=== PATIENT | male | born 1950 | race Caucasian/White ===

== ENCOUNTER 2019-03-18 23:18 | Inpatient (IN) | payer MEDICARE, OTHER ==
[2019-03-18] MEDS ORDERED: HYDROmorphone 1 MG/ML 1 ML SYRINGE IVP STA (23:39)
[2019-03-18] MEDS ORDERED: ONDANSETRON 4 MG/2 ML VIAL IVP STA (23:39)
[2019-03-18] MEDS ORDERED: ACETAMINOPHEN TAB 500 MG TAB PO STA (23:43)
[2019-03-18] MEDS ORDERED: DIAZEPAM 5 MG/ML 2 ML INJ IVP STA (23:44)
[2019-03-19] MEDS ORDERED: HYDROmorphone 0.5 MG/0.5 ML SYRINGE IVP STA (00:11)
[2019-03-19 00:15] LABS: Basophils # (A) 0.1 k/uL (0-0.2); Basophils % (A) 0 %; Eosinophils # (A) 0.2 k/uL (0-0.7); Eosinophils % (A) 1 %; HCT 52.1 % (39.0-53.0); HGB 17.1 gm/dL (13.0-17.5); Lymphocytes # (A) 3.1 k/uL (1.0-4.8); Lymphocytes % (A) 14 %; MCH 29.8 pg (25.0-35.0); MCHC 32.7 g/dL (31.0-37.0); MCV 90.9 fL (80.0-100.0); Monocytes # (A) 1.3 k/uL (0-1.0); Monocytes % (A) 6 %; Neutrophils # (A) 17.5 k/uL (1.3-7.7); Neutrophils % (A) 78 %; Platelet Count 168 k/uL (150-450); RBC 5.73 m/uL (4.30-5.90); RDW 14.1 % (11.5-15.5); WBC 22.4 k/uL (3.8-10.6)
[2019-03-19 00:17] LABS: ALT 27 U/L (21-72); AST 34 U/L (17-59); African American GFR (CKD) >90 (>60 ml/min/1.73 sqM); Alkaline Phosphatase 53 U/L (38-126); Anion Gap 12 mmol/L; Blood Urea Nitrogen 23 mg/dL (9-20); Calcium 9.6 mg/dL (8.4-10.2); Carbon Dioxide 20 mmol/L (22-30); Chloride 106 mmol/L (98-107); Glucose 150 mg/dL (74-99); Potassium 4.4 mmol/L (3.5-5.1); Sodium 138 mmol/L (137-145); Total Bilirubin 0.7 mg/dL (0.2-1.3); Total Protein 6.9 g/dL (6.3-8.2)
[2019-03-19] MEDS: SODIUM CHLORIDE 0.9% 500 ML 500 ML IV SCH ×2 (00:18→03:00)
[2019-03-19 00:23] LABS: INR 0.9 (<1.2); Partial Thromboplastin Time 22.3 sec (22.0-30.0); Prothrombin Time 10.2 sec (9.0-12.0)
[2019-03-19 00:33] LABS: Appearance,Urine Clear (Clear); Bilirubin,Urine Negative (Negative); Blood,Urine Negative (Negative); Color,Urine Yellow; Glucose,Urine (UA) Negative (Negative); Ketones,Urine Negative (Negative); Leukocyte Esterase,Urine Large (Negative); Mucus,Urine Rare /hpf; Nitrite,Urine Negative (Negative); Protein,Urine Negative (Negative); RBC,Urine 1 /hpf (0-5); Specific Gravity,Urine 1.019 (1.001-1.035); Urobilinogen,Urine <2.0 mg/dL (<2.0); WBC,Urine 10 /hpf (0-5)
--- NOTE | 2019-03-19 01:06 | CT ---
EXAM: CT Abdomen and Pelvis With Intravenous Contrast CLINICAL HISTORY: ITS.REASON CT Reason: Severe low back pain; Fever; Syncope TECHNIQUE: Axial computed tomography images of the abdomen and pelvis with intravenous contrast. DLP is 3313.6 mGy-cm. This CT exam was performed using one or more of the following dose reduction techniques: automated exposure control, adjustment of the mA and/or kV according to patient size, and/or use of iterative reconstruction technique. Coronal and sagittal reconstructions are performed COMPARISON: No relevant prior studies available. FINDINGS: Lung bases: Unremarkable. No mass. No consolidation. ABDOMEN: Liver: Mildly enlarged fatty liver. Gallbladder and bile ducts: Unremarkable. No calcified stones. No ductal dilation. Pancreas: Unremarkable. No mass. No ductal dilation. Spleen: 16 cm splenomegaly. Adrenals: Unremarkable. No mass. Kidneys and ureters: Small bilateral renal cysts. No hydronephrosis. Stomach and bowel: Mild colonic diverticulosis. No obstruction. No mucosal thickening. PELVIS: Appendix: Normal appendix. Bladder: Unremarkable. No mass. Hand Reproductive: Large coarse central calcifications of the prostate gland. ABDOMEN and PELVIS: Intraperitoneal space: Unremarkable. No free air. No significant fluid collection. Bones/joints: No acute fracture. No dislocation. Soft tissues: Suspect left gynecomastia. Vasculature: Moderate amount of atherosclerotic calcifications. No abdominal aortic aneurysm. Lymph nodes: Unremarkable. No enlarged lymph nodes. IMPRESSION: No acute findings.
--- NOTE | 2019-03-19 02:11 | XR ---
EXAM: XR Chest, 2 Views CLINICAL HISTORY: ITS.REASON XR Reason: Pain TECHNIQUE: Frontal and lateral views of the chest. COMPARISON: No relevant prior studies available. FINDINGS: Lungs: Unremarkable. No consolidation. Pleural space: Unremarkable. No pneumothorax. Heart: Unremarkable. No cardiomegaly. Mediastinum: Unremarkable. Bones/joints: Unremarkable. IMPRESSION: No acute findings
[2019-03-19] MEDS ORDERED: LEVOFLOXACIN 750MG-D5W PMX 750 MG in DEXTROSE/WATER 1 150ML.BAG IVPB STA (02:40)
[2019-03-19] MEDS ORDERED: VANCOMYCIN IV PER PHARMACY 1 EACH MISC MISCELLANE PRN (02:40)
[2019-03-19] MEDS ORDERED: NALOXONE 0.4 MG/ML 1 ML VIAL IV PRN (02:41)
[2019-03-19] MEDS ORDERED: HYDROmorphone 1 MG/ML 1 ML SYRINGE IVP PRN (02:41)
[2019-03-19] MEDS ORDERED: VANCOMYCIN 1,750 MG in SODIUM CHLORIDE 0.9% 500 ML 500 ML IVPB STA (02:44)
--- NOTE | 2019-03-19 02:44 | ED ---
General Adult HPI - General Source: patient Mode of arrival: wheelchair Limitations: no limitations <Shelly Zavala - Last Filed: 03/19/19 03:02> <Gerson Montilla - Last Filed: 03/23/19 04:13> - General Chief complaint: Back Pain/Injury Stated complaint: Lower Back Pain Time Seen by Provider: 03/18/19 23:33 - History of Present Illness Initial comments: 68-year-old male patient presents to the emergency department today for evaluation of severe low back pain. Family member state that pain started suddenly a couple of hours ago after patient had an episode of shaking chills. Family members state the patient has passed out multiple times from the pain. Patient denies any known injury to the back. Denies any history of back pain. Patient reports the pain is to the mid low back and is stabbing in nature. Denies any radiation of the pain down his legs. Denies a loss of bowel or bladder control. Denies any saddle anesthesia. Patient is in quite a bit of distress upon arrival. Patient denies any chest pain or shortness of breath. Denies any abdominal pain, constipation, or diarrhea. Patient states he is nauseated from the pain but denies any vomiting. Denies any recent travel or sick contacts. Denies any history of IV drug use. Denies any known history of aortic aneurysm. Patient is a former smoker. Admits to smoking marijuana. Denies any alcohol use. Patient denies any recent rash, numbness, tingling, dizziness, weakness, hematuria, dysuria, urinary urgency, urinary frequency, headache, visual changes, or any other complaints. (Shelly Zavala) - Related Data Allergies Allergy/AdvReac Type Severity Reaction Status Date / Time No Known Allergies Allergy Verified 03/19/19 07:37 Review of Systems ROS Other: All systems not noted in ROS Statement are negative. <Shelly Zavala - Last Filed: 03/19/19 03:02> ROS Other: All systems not noted in ROS Statement are negative. <Gerson Montilla - Last Filed: 03/23/19 04:13> ROS Statement: Those systems with pertinent positive or pertinent negative responses have been documented in the HPI. Past Medical History Past Medical History: No Reported History History of Any Multi-Drug Resistant Organisms: None Reported Past Surgical History: Cholecystectomy, Orthopedic Surgery Additional Past Surgical History / Comment(s): knee Past Psychological History: No Psychological Hx Reported Smoking Status: Former smoker Past Alcohol Use History: None Reported Past Drug Use History: Marijuana <Shelly Zavala - Last Filed: 03/19/19 03:02> General Exam Limitations: no limitations General appearance: alert, in distress (Related to pain), other (This is a well- developed, well-nourished adult male patient in acute distress related to pain. Patient is quite uncomfortable during exam, unable to sit upright. Appears to be having spasm-type pain. Has exhibited 2-3 episodes of syncope during the exam. Vital signs upon presentation are temperature 98.4F, pulse 112, respirations 26, blood pressure 154/73, pulse ox 99% on room air.) Eye exam: Present: normal appearance, PERRL, EOMI. Absent: scleral icterus, conjunctival injection, periorbital swelling ENT exam: Present: normal exam, normal oropharynx, mucous membranes moist Respiratory exam: Present: normal lung sounds bilaterally. Absent: respiratory distress, wheezes, rales, rhonchi, stridor Cardiovascular Exam: Present: normal rhythm, tachycardia, normal heart sounds. Absent: systolic murmur, diastolic murmur, rubs, gallop, clicks GI/Abdominal exam: Present: soft, normal bowel sounds. Absent: distended, tenderness, guarding, rebound, rigid Back exam: Present: normal inspection. Absent: vertebral tenderness Neurological exam: Present: alert, oriented X3, CN II-XII intact Psychiatric exam: Present: normal affect, normal mood Skin exam: Present: warm, dry, intact, normal color. Absent: rash <Shelly Zavala M - Last Filed: 03/19/19 03:02> Course Vital Signs 03/18/19 03/19/19 03/19/19 23:22 00:20 00:25 Temperature 98.4 F 101 F H Pulse Rate 112 H 111 H Pulse Rate [ 115 H Can Washer ] Respiratory 26 H 17 Rate Blood Pressure 154/73 122/69 Blood Pressure [Right Arm] O2 Sat by Pulse 99 95 Oximetry 03/19/19 03/19/19 03/19/19 03:00 03:36 04:00 Temperature 98.7 F 98.7 F Pulse Rate 89 78 Pulse Rate [ 80 Can Washer ] Respiratory 18 18 14 Rate Blood Pressure 106/60 110/47 Blood Pressure 109/65 [Right Arm] O2 Sat by Pulse 95 96 Oximetry EKG Findings - EKG Comments: EKG Findings:: EKG obtained at 001 shows sinus tachycardia with a ventricular rate of 106, [place] interval 162, QRS duration 76, QT to 92, QTc 387. No evidence of ST elevation or depression. <Shelly Zavala - Last Filed: 03/19/19 03:02> Medical Decision Making - Lab Data Result diagrams: 03/18/19 23:41 03/18/19 23:41 - Radiology Data Radiology results: report reviewed, image reviewed <Shelly Zavala - Last Filed: 03/19/19 03:02> - Lab Data Result diagrams: 03/20/19 04:31 03/20/19 04:31 <Gerson Montilla - Last Filed: 03/23/19 04:13> - Medical Decision Making 68 year-old male patient presented to the emergency department today for evalu ation of severe low back pain after an episode of shaking chills. Physical examination was relatively unremarkable. Abdomen soft and nontender. No spinal tenderness. Patient was found to be febrile upon arrival with a temperature 101.0F. Labs reviewed and did reveal white blood cell count at 22.4, lactic acid 3.0. Urinalysis shows large leukocyte esterase with 10 white blood cells. No bacteria. CT abdomen and pelvis was obtained with contrast, no acute abnormalities were identified. Chest x-ray was obtained and showed no acute abnormalities. Origin of patient's fever and infection is not clear at this time however we'll start broad-spectrum antibiotics. He'll be admitted to the [facility] for further evaluation and infectious disease consult. Did discuss findings and results with the patient's family, they are agreeable to this plan. (Shelly Zavala) I saw this patient in conjunction with the physician assistant manager quality management. I performed independent history and physical exam. Agree with case management. (Gerson Montilla) - Lab Data Lab Results 03/18/19 03/18/19 03/18/19 Range/Units 23:41 23:41 23:41 WBC 22.4 H (3.8-10.6) k/uL RBC 5.73 (4.30-5.90) m/uL Hgb 17.1 (13.0-17.5) gm/dL Hct 52.1 (39.0-53.0) % MCV 90.9 (80.0-100.0) fL MCH 29.8 (25.0-35.0) pg MCHC 32.7 (31.0-37.0) g/dL RDW 14.1 (11.5-15.5) % Plt Count 168 (150-450) k/uL Neutrophils % 78 % Lymphocytes % 14 % Monocytes % 6 % Eosinophils % 1 % Basophils % 0 % Neutrophils # 17.5 H (1.3-7.7) k/uL Lymphocytes # 3.1 (1.0-4.8) k/uL Monocytes # 1.3 H (0-1.0) k/uL Eosinophils # 0.2 (0-0.7) k/uL Basophils # 0.1 (0-0.2) k/uL Manual Slide Review Performed PT (9.0-12.0) sec INR (<1.2) APTT (22.0-30.0) sec Sodium 138 (137-145) mmol/L Potassium 4.4 (3.5-5.1) mmol/L Chloride 106 (98-107) mmol/L Carbon Dioxide 20 L (22-30) mmol/L Anion Gap 12 mmol/L BUN 23 H (9-20) mg/dL Creatinine 0.75 (0.66-1.25) mg/dL Est GFR (CKD-EPI)AfAm >90 (>60 ml/min/1.73 sqM) Est GFR (CKD-EPI)NonAf >90 (>60 ml/min/1.73 sqM) Glucose 150 H (74-99) mg/dL Lactic Ac Sepsis Rflx Plasma Lactic Acid Chris 3.0 H* (0.7-2.0) mmol/L Calcium 9.6 (8.4-10.2) mg/dL Total Bilirubin 0.7 (0.2-1.3) mg/dL AST 34 (17-59) U/L ALT 27 (21-72) U/L Alkaline Phosphatase 53 (38-126) U/L Troponin I (0.000-0.034) ng/mL Total Protein 6.9 (6.3-8.2) g/dL Albumin 4.0 (3.5-5.0) g/dL Urine Color Urine Appearance (Clear) Urine pH (5.0-8.0) Ur Specific [place] (1.001-1.035) Urine Protein (Negative) Urine Glucose (UA) (Negative) Urine Ketones (Negative) Urine Blood (Negative) Urine Nitrite (Negative) Urine Bilirubin (Negative) Urine Urobilinogen (<2.0) mg/dL Ur Leukocyte Esterase (Negative) Urine RBC (0-5) /hpf Urine WBC (0-5) /hpf Urine Mucus (None) /hpf Urine Opiates Screen (NotDetected) Ur Oxycodone Screen (NotDetected) Urine Methadone Screen (NotDetected) Ur Propoxyphene Screen (NotDetected) Ur Barbiturates Screen (NotDetected) U Tricyclic Antidepress (NotDetected) Ur Phencyclidine Scrn (NotDetected) Ur Amphetamines Screen (NotDetected) U Methamphetamines Scrn (NotDetected) U Benzodiazepines Scrn (NotDetected) Urine Cocaine Screen (NotDetected) U Marijuana (THC) Screen (NotDetected) 03/18/19 03/18/19 03/19/19 Range/Units 23:41 23:41 00:12 WBC (3.8-10.6) k/uL RBC (4.30-5.90) m/uL Hgb (13.0-17.5) gm/dL Hct (39.0-53.0) % MCV (80.0-100.0) fL MCH (25.0-35.0) pg MCHC (31.0-37.0) g/dL RDW (11.5-15.5) % Plt Count (150-450) k/uL Neutrophils % % Lymphocytes % % Monocytes % % Eosinophils % % Basophils % % Neutrophils # (1.3-7.7) k/uL Lymphocytes # (1.0-4.8) k/uL Monocytes # (0-1.0) k/uL Eosinophils # (0-0.7) k/uL Basophils # (0-0.2) k/uL Manual Slide Review PT 10.2 (9.0-12.0) sec INR 0.9 (<1.2) APTT 22.3 (22.0-30.0) sec Sodium (137-145) mmol/L Potassium (3.5-5.1) mmol/L Chloride (98-107) mmol/L Carbon Dioxide (22-30) mmol/L Anion Gap mmol/L BUN (9-20) mg/dL Creatinine (0.66-1.25) mg/dL Est GFR (CKD-EPI)AfAm (>60 ml/min/1.73 sqM) Est GFR (CKD-EPI)NonAf (>60 ml/min/1.73 sqM) Glucose (74-99) mg/dL Lactic Ac Sepsis Rflx Plasma Lactic Acid Chris (0.7-2.0) mmol/L Calcium (8.4-10.2) mg/dL Total Bilirubin (0.2-1.3) mg/dL AST (17-59) U/L ALT (21-72) U/L Alkaline Phosphatase (38-126) U/L Troponin I <0.012 (0.000-0.034) ng/mL Total Protein (6.3-8.2) g/dL Albumin (3.5-5.0) g/dL Urine Color Yellow Urine Appearance Clear (Clear) Urine pH 5.0 (5.0-8.0) Ur Specific [place] 1.019 (1.001-1.035) Urine Protein Negative (Negative) Urine Glucose (UA) Negative (Negative) Urine Ketones Negative (Negative) Urine Blood Negative (Negative) Urine Nitrite Negative (Negative) Urine Bilirubin Negative (Negative) Urine Urobilinogen <2.0 (<2.0) mg/dL Ur Leukocyte Esterase Large H (Negative) Urine RBC 1 (0-5) /hpf Urine WBC 10 H (0-5) /hpf Urine Mucus Rare H (None) /hpf Urine Opiates Screen (NotDetected) Ur Oxycodone Screen (NotDetected) Urine Methadone Screen (NotDetected) Ur Propoxyphene Screen (NotDetected) Ur Barbiturates Screen (NotDetected) U Tricyclic Antidepress (NotDetected) Ur Phencyclidine Scrn (NotDetected) Ur Amphetamines Screen (NotDetected) U Methamphetamines Scrn (NotDetected) U Benzodiazepines Scrn (NotDetected) Urine Cocaine Screen (NotDetected) U Marijuana (THC) Screen (NotDetected) 03/19/19 03/19/19 Range/Units 00:15 00:41 WBC (3.8-10.6) k/uL RBC (4.30-5.90) m/uL Hgb (13.0-17.5) gm/dL Hct (39.0-53.0) % MCV (80.0-100.0) fL MCH (25.0-35.0) pg MCHC (31.0-37.0) g/dL RDW (11.5-15.5) % Plt Count (150-450) k/uL Neutrophils % % Lymphocytes % % Monocytes % % Eosinophils % % Basophils % % Neutrophils # (1.3-7.7) k/uL Lymphocytes # (1.0-4.8) k/uL Monocytes # (0-1.0) k/uL Eosinophils # (0-0.7) k/uL Basophils # (0-0.2) k/uL Manual Slide Review PT (9.0-12.0) sec INR (<1.2) APTT (22.0-30.0) sec Sodium (137-145) mmol/L Potassium (3.5-5.1) mmol/L Chloride (98-107) mmol/L Carbon Dioxide (22-30) mmol/L Anion Gap mmol/L BUN (9-20) mg/dL Creatinine (0.66-1.25) mg/dL Est GFR (CKD-EPI)AfAm (>60 ml/min/1.73 sqM) Est GFR (CKD-EPI)NonAf (>60 ml/min/1.73 sqM) Glucose (74-99) mg/dL Lactic Ac Sepsis Rflx Y Plasma Lactic Acid Chris (0.7-2.0) mmol/L Calcium (8.4-10.2) mg/dL Total Bilirubin (0.2-1.3) mg/dL AST (17-59) U/L ALT (21-72) U/L Alkaline Phosphatase (38-126) U/L Troponin I (0.000-0.034) ng/mL Total Protein (6.3-8.2) g/dL Albumin (3.5-5.0) g/dL Urine Color Urine Appearance (Clear) Urine pH (5.0-8.0) Ur Specific [place] (1.001-1.035) Urine Protein (Negative) Urine Glucose (UA) (Negative) Urine Ketones (Negative) Urine Blood (Negative) Urine Nitrite (Negative) Urine Bilirubin (Negative) Urine Urobilinogen (<2.0) mg/dL Ur Leukocyte Esterase (Negative) Urine RBC (0-5) /hpf Urine WBC (0-5) /hpf Urine Mucus (None) /hpf Urine Opiates Screen Detected H (NotDetected) Ur Oxycodone Screen Not Detected (NotDetected) Urine Methadone Screen Not Detected (NotDetected) Ur Propoxyphene Screen Not Detected (NotDetected) Ur Barbiturates Screen Not Detected (NotDetected) U Tricyclic Antidepress Not Detected (NotDetected) Ur Phencyclidine Scrn Not Detected (NotDetected) Ur Amphetamines Screen Not Detected (NotDetected) U Methamphetamines Scrn Not Detected (NotDetected) U Benzodiazepines Scrn Detected H (NotDetected) Urine Cocaine Screen Not Detected (NotDetected) U Marijuana (THC) Screen Detected H (NotDetected) - Radiology Data CT abdomen and pelvis with contrast was obtained. Report is reviewed in its entirety. Impression by Dr. Gamino shows no acute findings. Two-view x-ray of the chest is obtained. Report was reviewed in its entirety. Impression by Dr. Gamino shows no acute findings. (Shelly Zavala) Disposition Decision to Admit Reason: Admit from EC Decision Date: 03/19/19 Decision Time: 02:43 <Shelly Zavala - Last Filed: 03/19/19 03:02> <Gerson Montilla - Last Filed: 03/23/19 04:13> Clinical Impression: Fever, Sepsis Disposition: ADMITTED IP TO THIS [facility] Condition: Serious
[2019-03-19 05:33] LABS: Glucose,Whole Blood 181 mg/dL (75-99)
[2019-03-19 06:14] LABS: Basophils # (A) 0.1 k/uL (0-0.2); Basophils % (A) 0 %; Eosinophils # (A) 0.2 k/uL (0-0.7); Eosinophils % (A) 1 %; HCT 44.5 % (39.0-53.0); Lymphocytes # (A) 0.7 k/uL (1.0-4.8); Lymphocytes % (A) 2 %; MCH 31.2 pg (25.0-35.0); MCHC 33.8 g/dL (31.0-37.0); MCV 92.4 fL (80.0-100.0); Mean Platelet Volume 7.3; Monocytes # (A) 1.9 k/uL (0-1.0); Monocytes % (A) 6 %; Neutrophils # (A) 30.2 k/uL (1.3-7.7); Neutrophils % (A) 91 %; Platelet Count 145 k/uL (150-450); RBC 4.82 m/uL (4.30-5.90); RDW 14.1 % (11.5-15.5); WBC 33.3 k/uL (3.8-10.6)
[2019-03-19 06:21] LABS: Albumin 3.1 g/dL (3.5-5.0); Calcium 8.6 mg/dL (8.4-10.2); Potassium 4.4 mmol/L (3.5-5.1); Total Bilirubin 1.1 mg/dL (0.2-1.3); Total Protein 5.6 g/dL (6.3-8.2)
[2019-03-19 06:35] LABS: Glucose,Whole Blood 161 mg/dL (75-99)
[2019-03-19] MEDS: SODIUM CHLORIDE 0.9% 1,000 ML IV SCH ×4 (06:47→08:27)
[2019-03-19 06:48] VITALS: BMI 40.7
[2019-03-19 07:04] LABS: Appearance,Urine Clear (Clear); Bilirubin,Urine Negative (Negative); Blood,Urine Negative (Negative); Color,Urine Yellow; Glucose,Urine (UA) Negative (Negative); Ketones,Urine Negative (Negative); Leukocyte Esterase,Urine Small (Negative); Mucus,Urine Rare /hpf; Nitrite,Urine Negative (Negative); PH, Urine 5.5 (5.0-8.0); Protein,Urine Trace (Negative); RBC,Urine 3 /hpf (0-5); Urobilinogen,Urine <2.0 mg/dL (<2.0)
[2019-03-19 07:29] LABS: Magnesium 1.4 mg/dL (1.6-2.3); Phosphorus 3.7 mg/dL (2.5-4.5)
[2019-03-19 07:29] LABS: Specific Gravity,Urine >1.050 (1.001-1.035)
--- NOTE | 2019-03-19 07:32 | XR ---
EXAMINATION TYPE: XR chest 1V DATE OF EXAM: 03/19/2019 COMPARISON: 03/19/2019 HISTORY: Shortness of breath TECHNIQUE: Single frontal view of the chest is obtained. FINDINGS: Heart size normal. No overt failure or pneumothorax. No pleural effusion. Atherosclerotic change aorta. IMPRESSION: No acute process.
[2019-03-19] MEDS ORDERED: ONDANSETRON 4 MG/2 ML VIAL IVP PRN (08:18)
[2019-03-19] MEDS: PANTOPRAZOLE 40 MG TABLET PO SCH (08:25)
[2019-03-19] MEDS: HEPARIN SODIUM,PORCINE 5,000 UNIT/ML 1 ML VIAL SQ SCH ×3 (08:28→23:23)
--- NOTE | 2019-03-19 09:44 | P.CNPUL ---
History of Present Illness Consult date: 03/19/19 Chief complaint: Reiger's, fever, back pain History of present illness: A 68-year-old male patient who came in to the ED with Brinegar's, sweating and lower back pain. The patient was apparently having shaking chills prior to him coming to the hospital and he was recommended to have a temperature of 101. Prior to this admission, the patient was seen by his primary care physician for a COPD exacerbation. Apparently was having some shortness of breath and cough and he also described pain in his mid chest radiating to his upper back. He was given antibiotics and prednisone burst taper. Antibiotics included Zithromax. He apparently improved without any further workup. He was told that he will need an echocardiogram at a later stage by his primary care physician. During this current admission, the back pain was in the lower back area. A CAT scan of the abdomen and pelvis was done with and chest and did not show any acute abnorm alities. The patient denied having any dysuria freaks urgency. He was quite nauseated. The pain was extensive in the lower back area probably at the level of L3-L4 without any radiation. I was told that he was having episodes of passing out and this was attributed to the severe pain. None of these episodes were noted by the nursing staff. He was given Dilaudid and Valium in the emergency department and it pain completed subsided and he is currently not having any issues with pain. Note that he was admitted to the floor. His white cell count was elevated. He was suspected to be septic. He was given a dose of Levaquin to which she seems to have had a reaction as the patient became quite flushed and restless and dizzy and weak. No rashes were noted. No swelling was noted. No previous history of drug ALLERGY. The patient got moved to the intensive care unit. He was given a total of 2 L of IV fluids. Currently he is feeling better and is free of any pain. No abdominal distention. There is a 2 g drop in hemoglobin. There was a causative 33.3. His lactic acid level is at 2.5. His creatinine is within normal limits. His urinalysis is also within normal limits. He is awake and alert and following commands and answering questions. Reports a remote history of nephrolithiasis. He is a former smoker. He used to also smoke marijuana none for now according to him. No 72 coronary artery disease. No history of falls. No previous back pain. He was having arthritic pain in his knees bilaterally and the patient was taking meloxicam for that. No focal neurological deficit at this point in time. Review of Systems Constitutional: Reports chills, Reports chronic pain, Reports fever, Reports sweats, Reports weakness Eyes: denies as per HPI, denies blurred vision, denies bulging eye, denies decre ased vision, denies diplopia, denies discharge, denies dry eye, denies irritation, denies itching, denies pain, denies photophobia, denies loss of peripheral vision, denies loss of vision, denies tunnel vision/blind spots Ears: deny: decreased hearing Ears, nose, mouth and throat: Reports as per HPI Cardiovascular: Reports as per HPI, Reports chest pain Respiratory: Reports as per HPI, Reports cough, Reports dyspnea, Reports wheezing Gastrointestinal: Reports nausea Genitourinary: Reports kidney stones Musculoskeletal: Reports low back pain Musculoskeletal: absent: ankle pain, ankle stiffness, ankle swelling Integumentary: Reports as per HPI Neurological: Reports as per HPI, Reports syncope, Reports weakness Psychiatric: Reports as per HPI Endocrine: Reports as per HPI, Reports fatigue, Reports flushing Hematologic/Lymphatic: Reports as per HPI Allergic/Immunologic: Reports as per HPI Past Medical History Past Medical History: No Reported History, COPD Additional Past Medical History / Comment(s): COPD, obesity, degenerative arthritis, previous history of kidney stones History of Any Multi-Drug Resistant Organisms: None Reported Past Surgical History: Cholecystectomy, Orthopedic Surgery Additional Past Surgical History / Comment(s): knee Past Anesthesia/Blood Transfusion Reactions: No Reported Reaction Past Psychological History: No Psychological Hx Reported Smoking Status: Former smoker Past Alcohol Use History: None Reported Past Drug Use History: Marijuana - Past Family History Father Family Medical History: Myocardial Infarction ([place]) Additional Family Medical History / Comment(s): father of [place] Medications and Allergies Home Medications Medication Instructions Recorded Confirmed Type Albuterol Inhaler [Ventolin Hfa 2 puff INHALATION RT-Q6H PRN 03/19/19 03/19/19 History Inhaler] Albuterol Nebulized [Ventolin 2.5 mg INHALATION RT-Q6H PRN 03/19/19 03/19/19 History Nebulized] Aspirin EC [Ecotrin Low Dose] 81 mg PO DAILY 03/19/19 03/19/19 History Meloxicam 15 mg PO DAILY 03/19/19 03/19/19 History Allergies Allergy/AdvReac Type Severity Reaction Status Date / Time No Known Allergies Allergy Verified 03/19/19 07:37 Physical Exam Vitals: Vital Signs Temp Pulse Pulse Resp BP BP Pulse Ox 03/19/19 08:30 77 22 108/57 03/19/19 08:00 98.6 F 83 22 110/70 03/19/19 07:30 90 26 H 116/76 03/19/19 07:10 83 14 116/76 03/19/19 07:00 85 19 03/19/19 06:50 76 14 03/19/19 06:40 90 14 03/19/19 06:30 98.7 F 81 17 109/65 98 03/19/19 06:27 80 24 03/19/19 04:00 78 14 110/47 96 03/19/19 03:36 98.7 F 80 18 109/65 03/19/19 03:00 98.7 F 89 18 106/60 95 03/19/19 00:25 101 F H 111 H 17 122/69 95 03/19/19 00:20 115 H 03/18/19 23:22 98.4 F 112 H 26 H 154/73 99 Intake and Output 03/18/19 03/19/19 03/19/19 22:59 06:59 14:59 Other: Weight 108.862 kg The patient appeared well nourished and normally developed. Vital signs as documented. Head exam is unremarkable. No scleral icterus or corneal arcus noted. Neck is without jugular venous distension, thyromegaly, or carotid bruits. Carotid upstrokes are brisk bilaterally. Lungs are diminished bilaterally with few scattered external wheeze.. Cardiac exam reveals the PMI to be normally sized and situated. Rhythm is regular. First and second heart sounds normal. No murmurs, rubs or gallops. Abdominal exam reveals normal bowel sounds, no masses, no organomegaly and no aortic enlargement. Extremities are nonedematous and both femoral and pedal pulses are normal.Examination of the sk in revealed no evidence of significant rashes, suspicious appearing nevi or other concerning lesions. Neurologically the patient is awake and alert and there is no focal neurological deficit. Muscular skeletal exam shows no evidence of any motor weakness in lower extremities. No point tenderness in his lower spine. No area of swelling or erythema or tenderness in the lower spine area. No deformity seen. Results - Laboratory Findings CBC and BMP: 03/19/19 05:59 03/19/19 05:59 PT/INR, D-dimer PT 10.2 sec (9.0-12.0) 03/18/19 23:41 INR 0.9 (<1.2) 03/18/19 23:41 Abnormal lab findings: Abnormal Labs 03/18/19 03/18/19 03/18/19 23:41 23:41 23:41 WBC 22.4 H Plt Count Neutrophils # 17.5 H Lymphocytes # Monocytes # 1.3 H Sodium Carbon Dioxide 20 L BUN 23 H Glucose 150 H POC Glucose (mg/dL) Plasma Lactic Acid Chris 3.0 H* Magnesium Total Protein Albumin Ur Specific [place] [facility] Urine Protein Ur Leukocyte Esterase Urine WBC Urine Mucus 03/19/19 03/19/19 03/19/19 00:12 03:58 05:30 WBC Plt Count Neutrophils # Lymphocytes # Monocytes # Sodium Carbon Dioxide BUN Glucose POC Glucose (mg/dL) 181 H Plasma Lactic Acid Chris 3.8 H* Magnesium Total Protein Albumin Ur Specific [facility] Urine Protein Ur Leukocyte Esterase Large H Urine WBC 10 H Urine Mucus Rare H 03/19/19 03/19/19 03/19/19 05:59 05:59 05:59 WBC 33.3 H Plt Count 145 L Neutrophils # 30.2 H Lymphocytes # 0.7 L Monocytes # 1.9 H Sodium 136 L Carbon Dioxide BUN 26 H Glucose 167 H POC Glucose (mg/dL) Plasma Lactic Acid Chris 2.8 H* Magnesium 1.4 L Total Protein 5.6 L Albumin 3.1 L Ur Specific [facility] Urine Protein Ur Leukocyte Esterase Urine WBC Urine Mucus 03/19/19 03/19/19 03/19/19 06:23 06:30 07:51 WBC Plt Count Neutrophils # Lymphocytes # Monocytes # Sodium Carbon Dioxide BUN Glucose POC Glucose (mg/dL) 161 H Plasma Lactic Acid Chris 2.5 H* Magnesium Total Protein Albumin Ur Specific [facility] >1.050 H Urine Protein Trace H Ur Leukocyte Esterase Small H Urine WBC Urine Mucus Rare H - Diagnostic Findings Chest x-ray: image reviewed Assessment and Plan Plan: 1 acute febrile illness along with Rigors, chills, leukocytosis and mild lactic acidosis. Consider underlying infection/sepsis. The patient was given a combination of Levaquin and vancomycin. Patient could've had a reaction to his Levaquin and the patient was first a combination of Rocephin and vancomycin for now pending further cultures. 2 lower back pain, subsided 3 chest pain radiating to the back, history further workup. Low likelihood for any dissection or aortic pathology. 4 COPD exacerbation treated recently with a combination of Zithromax and prednisone burst taper an outpatient basis 5 chronic arthritic pain involving the knees bilaterally 6 mild lactic acidosis 8 leukocytosis 9 history of nephrolithiasis Plan Urine cultures. Blood cultures. Rocephin and vancomycin. Echocardiogram. Would like to get a CT angiogram of the thoracic and abdominal aorta based on this leg presentation and history of chest upper back and lower back pain. This may need to be done within the next 24 hours as the patient sees consciousness recently regarding the CAT scan of the abdomen. Awaiting further cultures. Consult ID. ProCalcitonin level. The patient has already received a total of 3 L of IV fluids. Continue maintenance at a rate of 75 mL an hour. No pressors for now. Pain is under good control. No altered mentation. We'll follow.
[2019-03-19] MEDS: ACETAMINOPHEN TAB 325 MG TAB PO PRN ×2 (10:19→21:22)
--- NOTE | 2019-03-19 13:39 | P.HPIM ---
History of Present Illness This is a pleasant 68 years old male with past medical history of COPD, osteoarthritis, kidney stones and obesity. Patient presents with no filling well for one day duration, as per patient and at bedside patient started having chills and filling called yesterday, he went to take a shower followed by severe back pain is unusual for him, and his pain is sometimes it now, also he had some mild frontal headache that is resolved now. Patient denies dyspnea, chest pain or coughing. Patient denies upper respiratory tract infection like sneezing or sore throat. Patient's with no diarrhea, he had regular bowel movements yesterday. Patient denies dysuria. However patient has some pinkish rash on the left lower leg, associated with some scratching magallon, patient wasn't sure if he brought his leg or there was a mosquito bite for the last 2 days but he said he was aware about his left leg. Vitas looks stable. Had fever on admission of 101. Labs showing leukocytosis of 30 3.3K, sodium 136, creatinine 1.0, sugar 181, lactic acid is 3.8 on admission coming down to normal at 1.7. Chest x-ray showing no acute process. EKG showing sinus tachycardia at [address]-T changes. CT of the abdomen and pelvis with intravenous contrast: Splenomegaly Patient hospital course complicated by what looks like ALLERGIC reaction with Levaquin associated with dyspnea and rash, which is resolved after stopping the Levaquin. Patient informed about his Levaquin again Review of Systems CONSTITUTIONAL: No fever, no malaise, no fatigue. HEENT: No recent visual problems or hearing problems. Denied any sore throat. CARDIOVASCULAR: No orthopnea, PND, no palpitations, no syncope. PULMONARY: No shortness of breath, no cough, no hemoptysis. GASTROINTESTINAL: No diarrhea, no nausea, no vomiting, no abdominal pain. Normoactive bowel sounds. NEUROLOGICAL: No headaches, no weakness, no numbness. HEMATOLOGICAL: Denies any bleeding or petechiae. GENITOURINARY: Denies any burning micturition, frequency, or urgency. MUSCULOSKELETAL/RHEUMATOLOGICAL: Denies any joint pain, swelling, or any muscle pain. ENDOCRINE: Denies any polyuria or polydipsia. Past Medical History Past Medical History: No Reported History, COPD Additional Past Medical History / Comment(s): COPD, obesity, degenerative arthritis, previous history of kidney stones History of Any Multi-Drug Resistant Organisms: None Reported Past Surgical History: Cholecystectomy, Orthopedic Surgery Additional Past Surgical History / Comment(s): knee Past Anesthesia/Blood Transfusion Reactions: No Reported Reaction Past Psychological History: No Psychological Hx Reported Smoking Status: Former smoker Past Alcohol Use History: None Reported Past Drug Use History: Marijuana - Past Family History Father Family Medical History: Myocardial Infarction ([place]) Additional Family Medical History / Comment(s): father of [place] Medications and Allergies Home Medications Medication Instructions Recorded Confirmed Type Albuterol Inhaler [Ventolin Hfa 2 puff INHALATION RT-Q6H PRN 03/19/19 03/19/19 History Inhaler] Albuterol Nebulized [Ventolin 2.5 mg INHALATION RT-Q6H PRN 03/19/19 03/19/19 History Nebulized] Aspirin EC [Ecotrin Low Dose] 81 mg PO DAILY 03/19/19 03/19/19 History Meloxicam 15 mg PO DAILY 03/19/19 03/19/19 History Allergies Allergy/AdvReac Type Severity Reaction Status Date / Time No Known Allergies Allergy Verified 03/19/19 07:37 Physical Exam Vitals: Vital Signs Temp Pulse Pulse Resp BP BP Pulse Ox 03/19/19 12:00 98.8 F 62 80 20 116/60 98 03/19/19 11:00 82 20 127/71 03/19/19 10:00 71 25 H 108/61 98 03/19/19 09:00 98.6 F 81 18 104/56 98 03/19/19 08:30 77 22 108/57 03/19/19 08:00 98.6 F 83 80 22 110/70 03/19/19 07:30 90 26 H 116/76 03/19/19 07:10 83 14 116/76 03/19/19 07:00 85 19 03/19/19 06:50 76 14 03/19/19 06:40 90 14 03/19/19 06:30 98.7 F 81 17 109/65 98 03/19/19 06:27 80 24 03/19/19 04:00 78 14 110/47 96 03/19/19 03:36 98.7 F 80 18 109/65 03/19/19 03:00 98.7 F 89 18 106/60 95 03/19/19 00:25 101 F H 111 H 17 122/69 95 03/19/19 00:20 115 H 03/18/19 23:22 98.4 F 112 H 26 H 154/73 99 Intake and Output 03/18/19 03/19/19 03/19/19 22:59 06:59 14:59 Intake Total 1200 Output Total 400 Balance 800 Intake: Intake, IV Titration 1200 Amount Sodium Chloride 0.9% 1, 100 000 ml @ 50 mls/hr IV . Q20H MELANIE Rx#:[id number] Sodium Chloride 0.9% 1, 1000 000 ml @ 999 mls/hr IV . Q1H1M MELANIE Rx#:[id number] Vancomycin 1,750 mg In 50 Sodium Chloride 0.9% 500 ml 500 ml @ 167 mls/hr IVPB Q12H MELANIE Rx#: [id number] 1 gm In 50 Sodium Chloride 0.9% 50 ml @ 100 mls/hr IVPB Q24HR MELANIE Rx#:[id number] Output: Urine 400 Other: Voiding Method Urinal Weight 108.862 kg GENERAL: The patient is alert and oriented x3, not in any acute distress. Well developed, well nourished. HEENT: Pupils are round and equally reacting to light. EOMI. No scleral icterus. No conjunctival pallor. Normocephalic, atraumatic. No pharyngeal erythema. No thyromegaly. CARDIOVASCULAR: S1 and S2 present. No murmurs, rubs, or gallops. PULMONARY: Chest is clear to auscultation, no wheezing or crackles. ABDOMEN: Soft, nontender, nondistended, normoactive bowel sounds. No palpable organomegaly. MUSCULOSKELETAL: No joint swelling or deformity. -EXTREMITIES: No cyanosis, clubbing, or pedal edema. Rash in the left lower leg with mild swelling, with scratching magallon. No open wound or purulent discharge NEUROLOGICAL: Gross neurological examination did not reveal any focal deficits. SKIN: No rashes. Results CBC & Chem 7: 03/19/19 05:59 03/19/19 05:59 Labs: Abnormal Lab Results - Last 24 Hours (Table) 03/18/19 03/18/19 03/18/19 Range/Units 23:41 23:41 23:41 WBC 22.4 H (3.8-10.6) k/uL Plt Count (150-450) k/uL Neutrophils # 17.5 H (1.3-7.7) k/uL Lymphocytes # (1.0-4.8) k/uL Monocytes # 1.3 H (0-1.0) k/uL Sodium (137-145) mmol/L Carbon Dioxide 20 L (22-30) mmol/L BUN 23 H (9-20) mg/dL Glucose 150 H (74-99) mg/dL POC Glucose (mg/dL) (75-99) mg/dL Plasma Lactic Acid Chris 3.0 H* (0.7-2.0) mmol/L Magnesium (1.6-2.3) mg/dL Total Protein (6.3-8.2) g/dL Albumin (3.5-5.0) g/dL Ur Specific [place] (1.001-1.035) Urine Protein (Negative) Ur Leukocyte Esterase (Negative) Urine WBC (0-5) /hpf Urine Mucus (None) /hpf 03/19/19 03/19/19 03/19/19 Range/Units 00:12 03:58 05:30 WBC (3.8-10.6) k/uL Plt Count (150-450) k/uL Neutrophils # (1.3-7.7) k/uL Lymphocytes # (1.0-4.8) k/uL Monocytes # (0-1.0) k/uL Sodium (137-145) mmol/L Carbon Dioxide (22-30) mmol/L BUN (9-20) mg/dL Glucose (74-99) mg/dL POC Glucose (mg/dL) 181 H (75-99) mg/dL Plasma Lactic Acid Chris 3.8 H* (0.7-2.0) mmol/L Magnesium (1.6-2.3) mg/dL Total Protein (6.3-8.2) g/dL Albumin (3.5-5.0) g/dL Ur Specific [place] (1.001-1.035) Urine Protein (Negative) Ur Leukocyte Esterase Large H (Negative) Urine WBC 10 H (0-5) /hpf Urine Mucus Rare H (None) /hpf 03/19/19 03/19/19 03/19/19 Range/Units 05:59 05:59 05:59 WBC 33.3 H (3.8-10.6) k/uL Plt Count 145 L (150-450) k/uL Neutrophils # 30.2 H (1.3-7.7) k/uL Lymphocytes # 0.7 L (1.0-4.8) k/uL Monocytes # 1.9 H (0-1.0) k/uL Sodium 136 L (137-145) mmol/L Carbon Dioxide (22-30) mmol/L BUN 26 H (9-20) mg/dL Glucose 167 H (74-99) mg/dL POC Glucose (mg/dL) (75-99) mg/dL Plasma Lactic Acid Chris 2.8 H* (0.7-2.0) mmol/L Magnesium 1.4 L (1.6-2.3) mg/dL Total Protein 5.6 L (6.3-8.2) g/dL Albumin 3.1 L (3.5-5.0) g/dL Ur Specific [place] (1.001-1.035) Urine Protein (Negative) Ur Leukocyte Esterase (Negative) Urine WBC (0-5) /hpf Urine Mucus (None) /hpf 03/19/19 03/19/19 03/19/19 Range/Units 06:23 06:30 07:51 WBC (3.8-10.6) k/uL Plt Count (150-450) k/uL Neutrophils # (1.3-7.7) k/uL Lymphocytes # (1.0-4.8) k/uL Monocytes # (0-1.0) k/uL Sodium (137-145) mmol/L Carbon Dioxide (22-30) mmol/L BUN (9-20) mg/dL Glucose (74-99) mg/dL POC Glucose (mg/dL) 161 H (75-99) mg/dL Plasma Lactic Acid Chris 2.5 H* (0.7-2.0) mmol/L Magnesium (1.6-2.3) mg/dL Total Protein (6.3-8.2) g/dL Albumin (3.5-5.0) g/dL Ur Specific [place] >1.050 H (1.001-1.035) Urine Protein Trace H (Negative) Ur Leukocyte Esterase Small H (Negative) Urine WBC (0-5) /hpf Urine Mucus Rare H (None) /hpf Microbiology - Last 24 Hours (Table) 03/19/19 00:12 Urine Culture - Preliminary Urine,Clean Catch Thrombosis Risk Factor Assmnt - Choose All That Apply Other Risk Factors: Yes Each Risk Factor Represents 2 Points: Age 61-74 years Thrombosis Risk Factor Assessment Total Risk Factor Score: 2 Thrombosis Risk Factor Assessment Level: Low Risk Assessment and Plan Assessment: Mostly cellulitis of the left lower leg Systemic inflammatory response with tachypnea and leukocytosis and fever Possible sepsis of unknown etiology Mild acute COPD exacerbation. Elevated lactic acid, resolved Leukocytosis History of kidney stone Obesity Plan: This is a pleasant 68 years old male who presents with possible sepsis secondary to cellulitis of the left leg. Continue with antibiotic as per infectious disease recommendation. Continue with IV hydration. Pulmonary/critical care input is appreciated and removed with a recommendation. We'll do a Doppler to rule out DVT. Labs and medication were reviewed.. Continue same treatment. Continue with symptomatic treatment. Resume home medication. Monitor lytes and vitals. DVT and GI prophylaxis. Further recommendations of the clinical course of the patient DVT prophylaxis: Subcutaneous heparin GI Prophylaxis: Pepcid PT/OT: Pending Prognosis is guarded
--- NOTE | 2019-03-19 14:24 | P.CONS ---
History of Present Illness - Reason for Consult Consult date: 03/19/19 Fever, sepsis - History of Present Illness This is a 68-year-old male gives history and plan sudden onset of petty re fever and chills as well as lumbar back pain. He does have chronic lumbar back pain and uses a heating pad on a regular basis. He also has bilateral knee pain that is chronic and has had no changes. Patient did developed severe lower back pain along with fever and chills. He was recently treated for COPD exacerbation Z-Justin and prednisone taper which he completed. He was having shortness of breath as well as a pain in his mid chest that shot through to his upper back. The patient was also scheduled for an echocardiogram later this month at cardiology. Patient came into [facility] emergency center for evaluation and found to have temperature max 101, heart rate 111, white count 33.3, platelets of dropped to 145. BUN 26 and creatinine 1.03. Lactic acid 3. Urinalysis leukoesterase large, WBC 10. CT of the abdomen and pelvis did not reveal any acute abnormality. Chest x-ray and repeat chest x-ray showed no acute cardio pulmonary process. Urine culture and blood culture in progress. Patient states that he arrived and was given Valium and Dilaudid for pain and since then he has had no further back pain. He did receive Levaquin and he felt like he had very hot at the time and this is subsequently been discontinued and patient placed on Rocephin and continued on vancomycin. [facility] and then transferred to the intensive care unit during the night as an A-Team was called. Dr. Garcia was added for intensive care management and he is subsequently ordered a CT and she'll of the thoracic abdominal and pelvic aorta and echocardiogram. Patient currently denies any chest pain with a sensation of feeling was going through to his back. Review of Systems Constitutional: Reports chills, Reports fatigue, Reports fever Ears, nose, mouth and throat: Denies dysphagia, Denies nasal congestion, Denies nasal discharge, Denies vertigo Cardiovascular: Denies chest pain, Denies decreased exercise tolerance, Denies dyspnea on exertion, Denies leg edema, Denies lightheadedness, Denies syncope Past Medical History Past Medical History: No Reported History, COPD Additional Past Medical History / Comment(s): COPD, obesity, degenerative arthritis, previous history of kidney stones History of Any Multi-Drug Resistant Organisms: None Reported Past Surgical History: Cholecystectomy, Orthopedic Surgery Additional Past Surgical History / Comment(s): knee Past Anesthesia/Blood Transfusion Reactions: No Reported Reaction Past Psychological History: No Psychological Hx Reported Smoking Status: Former smoker Past Alcohol Use History: None Reported Additional Past Alcohol Use History / Comment(s): The patient was a smoker one to one and half packs per day for 20 years and quit 30 years ago. He denies any marijuana, street drug or alcohol use. Patient lives at home with his and 2 sons. He is retired from IT. He denies any hobbies but son states he does gardening on a regular basis. No recent travel. There is a dog, chickens at home. Past Drug Use History: Marijuana - Past Family History Father Family Medical History: Myocardial Infarction ([place]) Additional Family Medical History / Comment(s): father of [place] Medications and Allergies Home Medications Medication Instructions Recorded Confirmed Type Albuterol Inhaler [Ventolin Hfa 2 puff INHALATION RT-Q6H PRN 03/19/19 03/19/19 History Inhaler] Albuterol Nebulized [Ventolin 2.5 mg INHALATION RT-Q6H PRN 03/19/19 03/19/19 History Nebulized] Aspirin EC [Ecotrin Low Dose] 81 mg PO DAILY 03/19/19 03/19/19 History Meloxicam 15 mg PO DAILY 03/19/19 03/19/19 History Allergies Allergy/AdvReac Type Severity Reaction Status Date / Time No Known Allergies Allergy Verified 03/19/19 07:37 Physical Exam Vitals: Vital Signs Temp Pulse Pulse Resp BP BP Pulse Ox 03/19/19 08:30 77 22 108/57 03/19/19 08:00 98.6 F 83 22 110/70 03/19/19 07:30 90 26 H 116/76 03/19/19 07:10 83 14 116/76 03/19/19 07:00 85 19 03/19/19 06:50 76 14 03/19/19 06:40 90 14 03/19/19 06:30 98.7 F 81 17 109/65 98 03/19/19 06:27 80 24 03/19/19 04:00 78 14 110/47 96 03/19/19 03:36 98.7 F 80 18 109/65 03/19/19 03:00 98.7 F 89 18 106/60 95 03/19/19 00:25 101 F H 111 H 17 122/69 95 03/19/19 00:20 115 H 03/18/19 23:22 98.4 F 112 H 26 H 154/73 99 Intake and Output 03/18/19 03/19/19 03/19/19 22:59 06:59 14:59 Other: Weight 108.862 kg Gen: This is a obese 68-year-old male. He is sitting up on the ICU bed and appears to be comfortable and in no acute distress. HEENT: Head is atraumatic, normocephalic. Pupils equal, round. Sclerae is anicteric. Conjunctiva pink. Extremities of the mouth are moist. No thrush noted. NECK: Supple. No JVD. No lymphadenopathy. No thyromegaly. LUNGS: Few scattered wheeze. No intercostal retractions. HEART: Regular rate and rhythm. No murmur. ABDOMEN: Soft. Bowel sounds are present. No masses. No tenderness. No suprapubic tenderness. EXTREMITIES: No pedal edema. No calf tenderness. Dorsalis pedis +2 bilaterally. No tenderness in the spinal column. Patient is negative for straight leg raise bilaterally. NEUROLOGICAL: Patient is awake, alert and oriented x3. Cranial nerves 2 through 12 are grossly intact. Results Results: Laboratory Results WBC 33.3 k/uL (3.8-10.6) H 03/19/19 05:59 RBC 4.82 m/uL (4.30-5.90) 03/19/19 05:59 Hgb 15.0 gm/dL (13.0-17.5) 03/19/19 05:59 Hct 44.5 % (39.0-53.0) 03/19/19 05:59 MCV 92.4 fL (80.0-100.0) 03/19/19 05:59 MCH 31.2 pg (25.0-35.0) 03/19/19 05:59 MCHC 33.8 g/dL (31.0-37.0) 03/19/19 05:59 RDW 14.1 % (11.5-15.5) 03/19/19 05:59 Plt Count 145 k/uL (150-450) L 03/19/19 05:59 Neutrophils % 91 % 03/19/19 05:59 Lymphocytes % 2 % 03/19/19 05:59 Monocytes % 6 % 03/19/19 05:59 Eosinophils % 1 % 03/19/19 05:59 Basophils % 0 % 03/19/19 05:59 Neutrophils # 30.2 k/uL (1.3-7.7) H 03/19/19 05:59 Lymphocytes # 0.7 k/uL (1.0-4.8) L 03/19/19 05:59 Monocytes # 1.9 k/uL (0-1.0) H 03/19/19 05:59 Eosinophils # 0.2 k/uL (0-0.7) 03/19/19 05:59 Basophils # 0.1 k/uL (0-0.2) 03/19/19 05:59 Manual Slide Review Performed 03/19/19 05:59 PT 10.2 sec (9.0-12.0) 03/18/19 23:41 INR 0.9 (<1.2) 03/18/19 23:41 APTT 22.3 sec (22.0-30.0) 03/18/19 23:41 Sodium 136 mmol/L (137-145) L 03/19/19 05:59 Potassium 4.4 mmol/L (3.5-5.1) 03/19/19 05:59 Chloride 105 mmol/L (98-107) 03/19/19 05:59 Carbon Dioxide 22 mmol/L (22-30) 03/19/19 05:59 Anion Gap 9 mmol/L 03/19/19 05:59 BUN 26 mg/dL (9-20) H 03/19/19 05:59 Creatinine 1.03 mg/dL (0.66-1.25) 03/19/19 05:59 Est GFR (CKD-EPI)AfAm 88 (>60 ml/min/1.73 sqM) 03/19/19 05:59 Est GFR (CKD-EPI)NonAf 76 (>60 ml/min/1.73 sqM) 03/19/19 05:59 Glucose 167 mg/dL (74-99) H 03/19/19 05:59 POC Glucose (mg/dL) 161 mg/dL (75-99) H 03/19/19 06:23 POC Glu Dining Host ID 03/19/19 06:23 Lactic Ac Sepsis Rflx Y 03/19/19 08:38 Plasma Lactic Acid Chris 1.7 mmol/L (0.7-2.0) 03/19/19 12:05 Calcium 8.6 mg/dL (8.4-10.2) 03/19/19 05:59 Phosphorus 3.7 mg/dL (2.5-4.5) 03/19/19 05:59 Magnesium 1.4 mg/dL (1.6-2.3) L 03/19/19 05:59 Total Bilirubin 1.1 mg/dL (0.2-1.3) 03/19/19 05:59 AST 24 U/L (17-59) 03/19/19 05:59 ALT 31 U/L (21-72) 03/19/19 05:59 Alkaline Phosphatase 38 U/L (38-126) 03/19/19 05:59 Troponin I <0.012 ng/mL (0.000-0.034) 03/18/19 23:41 Total Protein 5.6 g/dL (6.3-8.2) L 03/19/19 05:59 Albumin 3.1 g/dL (3.5-5.0) L 03/19/19 05:59 Urine Color Yellow 03/19/19 06:30 Urine Appearance Clear (Clear) 03/19/19 06:30 Urine pH 5.5 (5.0-8.0) 03/19/19 06:30 Ur Specific [place] >1.050 (1.001-1.035) H 03/19/19 06:30 Urine Protein Trace (Negative) H 03/19/19 06:30 Urine Glucose (UA) Negative (Negative) 03/19/19 06:30 Urine Ketones Negative (Negative) 03/19/19 06:30 Urine Blood Negative (Negative) 03/19/19 06:30 Urine Nitrite Negative (Negative) 03/19/19 06:30 Urine Bilirubin Negative (Negative) 03/19/19 06:30 Urine Urobilinogen <2.0 mg/dL (<2.0) 03/19/19 06:30 Ur Leukocyte Esterase Small (Negative) H 03/19/19 06:30 Urine RBC 3 /hpf (0-5) 03/19/19 06:30 Urine WBC 4 /hpf (0-5) 03/19/19 06:30 Urine Mucus Rare /hpf (None) H 03/19/19 06:30 CBC & Chem 7: 03/19/19 05:59 03/19/19 05:59 Labs: Abnormal Lab Results - Last 24 Hours (Table) 03/18/19 03/18/19 03/18/19 Range/Units 23:41 23:41 23:41 WBC 22.4 H (3.8-10.6) k/uL Plt Count (150-450) k/uL Neutrophils # 17.5 H (1.3-7.7) k/uL Lymphocytes # (1.0-4.8) k/uL Monocytes # 1.3 H (0-1.0) k/uL Sodium (137-145) mmol/L Carbon Dioxide 20 L (22-30) mmol/L BUN 23 H (9-20) mg/dL Glucose 150 H (74-99) mg/dL POC Glucose (mg/dL) (75-99) mg/dL Plasma Lactic Acid Chris 3.0 H* (0.7-2.0) mmol/L Magnesium (1.6-2.3) mg/dL Total Protein (6.3-8.2) g/dL Albumin (3.5-5.0) g/dL Ur Specific [place] (1.001-1.035) Urine Protein (Negative) Ur Leukocyte Esterase (Negative) Urine WBC (0-5) /hpf Urine Mucus (None) /hpf 03/19/19 03/19/19 03/19/19 Range/Units 00:12 03:58 05:30 WBC (3.8-10.6) k/uL Plt Count (150-450) k/uL Neutrophils # (1.3-7.7) k/uL Lymphocytes # (1.0-4.8) k/uL Monocytes # (0-1.0) k/uL Sodium (137-145) mmol/L Carbon Dioxide (22-30) mmol/L BUN (9-20) mg/dL Glucose (74-99) mg/dL POC Glucose (mg/dL) 181 H (75-99) mg/dL Plasma Lactic Acid Chris 3.8 H* (0.7-2.0) mmol/L Magnesium (1.6-2.3) mg/dL Total Protein (6.3-8.2) g/dL Albumin (3.5-5.0) g/dL Ur Specific [place] (1.001-1.035) Urine Protein (Negative) Ur Leukocyte Esterase Large H (Negative) Urine WBC 10 H (0-5) /hpf Urine Mucus Rare H (None) /hpf 03/19/19 03/19/19 03/19/19 Range/Units 05:59 05:59 05:59 WBC 33.3 H (3.8-10.6) k/uL Plt Count 145 L (150-450) k/uL Neutrophils # 30.2 H (1.3-7.7) k/uL Lymphocytes # 0.7 L (1.0-4.8) k/uL Monocytes # 1.9 H (0-1.0) k/uL Sodium 136 L (137-145) mmol/L Carbon Dioxide (22-30) mmol/L BUN 26 H (9-20) mg/dL Glucose 167 H (74-99) mg/dL POC Glucose (mg/dL) (75-99) mg/dL Plasma Lactic Acid Chris 2.8 H* (0.7-2.0) mmol/L Magnesium 1.4 L (1.6-2.3) mg/dL Total Protein 5.6 L (6.3-8.2) g/dL Albumin 3.1 L (3.5-5.0) g/dL Ur Specific [place] (1.001-1.035) Urine Protein (Negative) Ur Leukocyte Esterase (Negative) Urine WBC (0-5) /hpf Urine Mucus (None) /hpf 03/19/19 03/19/19 03/19/19 Range/Units 06:23 06:30 07:51 WBC (3.8-10.6) k/uL Plt Count (150-450) k/uL Neutrophils # (1.3-7.7) k/uL Lymphocytes # (1.0-4.8) k/uL Monocytes # (0-1.0) k/uL Sodium (137-145) mmol/L Carbon Dioxide (22-30) mmol/L BUN (9-20) mg/dL Glucose (74-99) mg/dL POC Glucose (mg/dL) 161 H (75-99) mg/dL Plasma Lactic Acid Chris 2.5 H* (0.7-2.0) mmol/L Magnesium (1.6-2.3) mg/dL Total Protein (6.3-8.2) g/dL Albumin (3.5-5.0) g/dL Ur Specific [place] >1.050 H (1.001-1.035) Urine Protein Trace H (Negative) Ur Leukocyte Esterase Small H (Negative) Urine WBC (0-5) /hpf Urine Mucus Rare H (None) /hpf Assessment and Plan Plan: This is a 68-year-old male presented to the hospital with signs of sepsis, lactic acidosis of unclear etiology. Patient also presented with febrile cytopenia. He is currently on IV antibiotics the form of Rocephin and vancomycin. Blood culture, urine culture in progress. Continue supportive care. Further recommendations as patient progresses. The above dictated assessment and findings were discussed with Dr. Mcfadden. The impression and plan of care have been directed as dictated. Marta Alcantar nurse practitioner acting as scribe for Dr. Mcfadden.
[2019-03-19] MEDS ORDERED: MAG HYDROX/AL HYDROX/SIMETH 30 ML CUP PO PRN (14:46)
[2019-03-19] MEDS ORDERED: ALPRAZolam 0.5 MG TAB PO PRN (16:24)
[2019-03-19] MEDS ORDERED: Magnesium Replacement Protocol 1 EACH MISC MISCELLANE PRN (17:22)
[2019-03-19] MEDS ORDERED: LORazepam 2 MG/ML INJ IV PRN ×3 (17:52)
[2019-03-19] MEDS: THIAMINE 100 MG TAB PO SCH ×2 (18:18→18:19)
--- NOTE | 2019-03-19 18:19 | ECHOF ---
Referral Reason:chest pain MEASUREMENTS -------- HEIGHT: 170.2 cm WEIGHT: 108.9 kg BP: 108/57 IVSd: 1.4 cm (0.6 - 1.1) LVIDd: 4.4 cm (3.9 - 5.3) LVPWd: 1.4 cm (0.6 - 1.1) IVSs: 1.9 cm LVIDs: 3.0 cm LVPWs: 1.9 cm LA Diam: 3.9 cm (2.7 - 3.8) RVIDd: 3.7 cm (< 3.3) LAESV Index (A-L): 31.54 ml/m Ao Diam: 3.3 cm (2.0 - 3.7) AV Cusp: 2.3 cm (1.5 - 2.6) EPSS: 0.9 cm MV E Celestino: 0.92 m/s MV DecT: 252 ms MV A Celestino: 0.93 m/s MV E/A Ratio: 0.99 MV EF SLOPE: 89.05 mm/s (70 - 150) MV EXCURSION: 21.52 mm (> 18.000) FINDINGS -------- Sinus rhythm. This was a technically good study. The left ventricular size is normal. There is moderate concentric left ventricular hypertrophy. O verall left ventricular systolic function is normal with, an EF between 60 - 65 %. The right ventricle is mildly enlarged. LA is midly dilated 29-33ml/m2. The right atrium is normal in size. Aneurysmal Interatrial septum. There is mild aortic valve sclerosis. The mitral valve is normal. The tricuspid valve appears structurally normal. Trace/mild (physiologic) pulmonic regurgitation. The aortic root size is normal. Normal inferior vena cava with normal inspiratory collapse consistent with estimated right atrial pre ssure of 5 mmHg. There is no pericardial effusion. CONCLUSIONS -------- 1. Sinus rhythm. 2. This was a technically good study. 3. The left ventricular size is normal. 4. There is moderate concentric left ventricular hypertrophy. 5. Overall left ventricular systolic function is normal with, an EF between 60 - 65 %. 6. The right ventricle is mildly enlarged. 7. LA is midly dilated 29-33ml/m2. 8. The right atrium is normal in size. 9. Aneurysmal Interatrial septum. 10. There is mild aortic valve sclerosis. 11. The mitral valve is normal. 12. The tricuspid valve appears structurally normal. 13. Trace/mild (physiologic) pulmonic regurgitation. 14. The aortic root size is normal. 15. Normal inferior vena cava with normal inspiratory collapse consistent with estimated right atrial pressure of 5 mmHg. 16. There is no pericardial effusion. LITERACY SPECIALIST: Rocio Lovell RDCS
[2019-03-19] MEDS: VANCOMYCIN 1,750 MG in SODIUM CHLORIDE 0.9% 500 ML 500 ML IVPB SCH (18:23)
[2019-03-19 18:39] LABS: Amphetamine Screen,Urine Not Detected (NotDetected); Barbiturate Screen,Urine Not Detected (NotDetected); Benzodiazepines Screen,Urine Detected (NotDetected); Cocaine Screen,Urine Not Detected (NotDetected); Methadone Screen, Urine Not Detected (NotDetected); Opiate Screen,Urine Detected (NotDetected); Oxycodone Screen, Urine Not Detected (NotDetected); Phencyclidine Screen,Urine Not Detected (NotDetected); Tricyclic Antidepressant,Urine Not Detected (NotDetected); Urn Cannabinoid Scrn Detected (NotDetected)
[2019-03-19 21:20] LABS: Hemoglobin A1C 6.6 % (4.0-6.0)
[2019-03-19] MEDS: FAMOTIDINE 20 MG/2 ML VIAL IV SCH (21:21)
--- NOTE | 2019-03-19 23:07 | P.CON ---
Consult Note - . Consult date: 03/19/19 Assessment/Plan:: This is a 68-year-old male gives history and plan sudden onset of severe fever and chills as well as lumbar back pain. He does have chronic lumbar back pain and uses a heating pad on a regular basis. He also has bilateral knee pain that is chronic and has had no changes. Patient did developed severe lower back pain along with fever and chills. He was recently treated for COPD exacerbation Z-Justin and prednisone taper which he completed. He was having shortness of breath as well as a pain in his mid chest that shot through to his upper back. The patient was also scheduled for an echocardiogram later this month at cardiology. Patient came into [facility] emergency center for evaluation and found to have temperature max 101, heart rate 111, white count 33.3, platelets of dropped to 145. BUN 26 and creatinine 1.03. Lactic acid 3. Urinalysis leukoesterase large, WBC 10. CT of the abdomen and pelvis did not reveal any acute abnormality. Chest x-ray and repeat chest x-ray showed no acute cardio pulmonary process. Urine culture and blood culture in progress. Patient states that he arrived and was given Valium and Dilaudid for pain and since then he has had no further back pain. He did receive Levaquin and he felt like he had very hot at the time and this is subsequently been discontinued and patient placed on Rocephin and continued on vancomycin. [facility] and then transferred to the intensive care unit during the night as an A-Team was called. Dr. Gracia was added for intensive care management and he is subsequently ordered a CT and she'll of the thoracic abdominal and pelvic aorta and echocardiogram. Patient currently denies any chest pain with a sensation of feeling was going through to his back.Please see the consult note as dictated by nurse practitioner Mrs. Marta Alcantar. This 68-year-old male has noted presented hospital with fever chills and feeling very poorly. He is known history of chronic back pain but also had severe lumbar back pain and presented. As noted he was recently seen in the outpatient setting for exacerbation of COPD was treated with azithromycin and prednisone. This Saturday completed by the time he presented to the emergency center. As noted there is no difficulties with temperature 101, count is 33.3 and lactic acid was elevated at 3. His related that he was given a dose of levofloxacin which caused him to feel very poorly is now being treated with Rocephin and vancomycin. The patient developed significant discomfort that seemed to migrate and constantly was a concern about the potential for an aneurysm and angiography is now pending. He is noted to be a significant marijuana user and has developed some agitation and now with some benzodiazepine use, sleeping quite nicely. He's had no further 101 fevers since actually shortly after his arrival. It is noted that he developed this rash to the medial aspect of the right ankle. He did not complain much about it but it was noticed. They used to live in the [place] area but now have moved out to the country in [place]. It appears that he admission the patient has evidence of sepsis is noted by the leukocytosis fever chills and elevated lactic acid. The source of sepsis remains quite indistinct. His fevers steadily improved and he has had some agitation that has developed and has responded well to treatment for withdrawal. [place] will assess for Lyme disease, increase the Rocephin to 2 g IV piggyback every 12 hours pending further data. Continue vancomycin therapy. He has not traveled but he does have a febrile illness and has had some alteration of his platelets and has a small rash on the ankle and will consider other tickborne illnesses and ask for Rickettsia titers. The rash the ankle is rather nondescript and does not appear to be enough extent to result in the current sepsis. At presentation he had very severe back pain that completely resolved after his arrival to hospital. Further imaging studies have been requested to evaluate for potential aneurysm given the somewhat atypical abdominal discomforts and migration that occurred. As noted the patient's fever has completely resolved and will be monitored. If fever recurs we'll need to consider multiple other areas of sepsis. I with evaluation, assessment and plan as dictated by nurse practitioner Mrs. Marta Alcantar.
[2019-03-20] MEDS ORDERED: LEVOFLOXACIN 750MG-D5W PMX 750 MG in DEXTROSE/WATER 1 150ML.BAG IVPB SCH (02:45)
[2019-03-20 05:25] LABS: Anisocytosis Slight; Basophils % (A) 0 %; Eosinophils % (A) 0 %; HCT 44.5 % (39.0-53.0); HGB 14.9 gm/dL (13.0-17.5); Lymphocytes # (A) 1.1 k/uL (1.0-4.8); Lymphocytes % (A) 6 %; MCH 30.8 pg (25.0-35.0); MCHC 33.5 g/dL (31.0-37.0); MCV 91.9 fL (80.0-100.0); Mean Platelet Volume 7.7; Monocytes # (A) 1.1 k/uL (0-1.0); Monocytes % (A) 7 %; Neutrophils # (A) 14.3 k/uL (1.3-7.7); Neutrophils % (A) 86 %; Platelet Count 131 k/uL (150-450); RBC 4.85 m/uL (4.30-5.90); RDW 16.2 % (11.5-15.5); WBC 16.7 k/uL (3.8-10.6)
[2019-03-20 05:33] LABS: African American GFR (CKD) >90 (>60 ml/min/1.73 sqM); Anion Gap 6 mmol/L; Blood Urea Nitrogen 16 mg/dL (9-20); Calcium 8.3 mg/dL (8.4-10.2); Carbon Dioxide 23 mmol/L (22-30); Chloride 106 mmol/L (98-107); Glucose 126 mg/dL (74-99); Magnesium 1.7 mg/dL (1.6-2.3); Potassium 4.3 mmol/L (3.5-5.1); Sodium 135 mmol/L (137-145)
[2019-03-20] MEDS: SODIUM CHLORIDE 0.9% 1,000 ML IV SCH (06:56)
[2019-03-20] MEDS: VANCOMYCIN 1,750 MG in SODIUM CHLORIDE 0.9% 500 ML 500 ML IVPB SCH (06:56)
[2019-03-20] MEDS: THIAMINE 100 MG TAB PO SCH (08:02)
[2019-03-20] MEDS: PANTOPRAZOLE 40 MG TABLET PO SCH (08:02)
[2019-03-20] MEDS: HEPARIN SODIUM,PORCINE 5,000 UNIT/ML 1 ML VIAL SQ SCH (08:03)
[2019-03-20] MEDS: FAMOTIDINE 20 MG/2 ML VIAL IV SCH (10:14)
[2019-03-20] MEDS ORDERED: RX INFO: IV CONTRAST WAS GIVEN 1 EACH MISC MISCELLANE PRN (11:17)
[2019-03-20 12:55] LABS: Lyme IgG/IgM 0.05 Index
--- NOTE | 2019-03-20 12:56 | CT ---
EXAMINATION TYPE: CT angio chest DATE OF EXAM: 03/20/2019 12:38 PM COMPARISON: Chest x-ray dated 03/19/2019 HISTORY: Dyspnea. CT DLP: 604.4 mGycm Automated exposure control for dose reduction was used. CONTRAST: CTA scan of the thorax is performed with IV Contrast, patient injected with 100 mL of Isovue 370, pul monary embolism protocol. . FINDINGS: LUNGS: There are a few scattered areas of linear scarring/atelectasis. There is no concerning parench ymal mass or nodule identified. There is no pleural effusion or pneumothorax seen. The tracheobron chial tree is patent. MEDIASTINUM: There is satisfactory enhancement of the pulmonary artery and its branches, there is no CT evidence for pulmonary embolism. There are no greater than 1 cm hilar or mediastinal lymph nodes. No pericardial effusion is seen. OTHER: No additional significant abnormality is seen. IMPRESSION: NO EVIDENCE OF PULMONARY EMBOLISM. NO SUSPICIOUS NODULES, MASSES OR INFILTRATES.
[2019-03-20] MEDS ORDERED: VANCOMYCIN 1,750 MG in SODIUM CHLORIDE 0.9% 500 ML 500 ML IVPB SCH (15:00)
[2019-03-20 15:30] VITALS: BP 126/67; PULSE 64; RESP 18; TEMP 98.3
--- NOTE | 2019-03-20 16:23 | P.PN ---
Subjective Progress Note Date: 03/20/19 On today's evaluation of [phone] the patient is hemodynamically stable. No pain involving the chest or back and he is feeling better compared to yesterday. No respiratory distress. CT angiogram of the chest was done and showed no acute abnormalities. Meanwhile, his white cell count is improving. All of the cultures are negative. He is afebrile. Remains on same antibiotic coverage. He was seen by infectious disease and their input is appreciated. The lactic acid level has normalized. Objective - Vital Signs Vital signs: Vital Signs Temp 98.3 F 03/20/19 15:06 Pulse 64 03/20/19 15:06 Resp 18 03/20/19 15:06 BP 126/67 03/20/19 15:06 Pulse Ox 97 03/20/19 15:06 Intake & Output 03/19/19 03/20/19 03/20/19 18:59 06:59 18:59 Intake Total 1400 934 841 Output Total 600 375 225 Balance 800 559 616 Weight 115 kg Intake: IV 934 601 Sodium Chloride 0.9% 1, 600 100 000 ml @ 50 mls/hr IV . Q20H MELANIE Rx#:[id number] Vancomycin 1,750 mg In 334 501 Sodium Chloride 0.9% 500 ml 500 ml @ 167 mls/hr IVPB Q12H MELANIE Rx#: [id number] Intake, IV Titration 1400 Amount Sodium Chloride 0.9% 1, 300 000 ml @ 50 mls/hr IV . Q20H MELANIE Rx#:[id number] Sodium Chloride 0.9% 1, 1000 000 ml @ 999 mls/hr IV . Q1H1M MELANIE Rx#:[id number] Vancomycin 1,750 mg In 50 Sodium Chloride 0.9% 500 ml 500 ml @ 167 mls/hr IVPB Q12H MELANIE Rx#: [id number] cefTRIAXone 1 gm In 50 Sodium Chloride 0.9% 50 ml @ 100 mls/hr IVPB Q24HR MELANIE Rx#:[id number] Oral 240 Output: Urine 600 375 225 Other: Voiding Method Urinal Urinal Urinal # Voids 1 0 0 - Exam The patient appeared well nourished and normally developed. Vital signs as documented. Head exam is unremarkable. No scleral icterus or corneal arcus noted. Neck is without jugular venous distension, thyromegaly, or carotid bruits. Carotid upstrokes are brisk bilaterally. Lungs are clear to auscultation and percussion. Cardiac exam reveals the PMI to be normally sized and situated. Rhythm is regular. First and second heart sounds normal. No murmurs, rubs or gallops. Abdominal exam reveals normal bowel sounds, no masses, no organomegaly and no aortic enlargement. Extremities are nonedematous and both femoral and pedal pulses are normal.Examination of the skin revealed no evidence of significant rashes, suspicious appearing nevi or other concerning lesions. Neurologically the patient is awake and alert and there is no focal neurological deficits. - Labs CBC & Chem 7: 03/20/19 04:31 03/20/19 04:31 Labs: Abnormal Lab Results - Last 24 Hours (Table) 03/19/19 03/19/19 03/19/19 Range/Units 00:15 05:59 05:59 WBC (3.8-10.6) k/uL RDW (11.5-15.5) % Plt Count (150-450) k/uL Neutrophils # (1.3-7.7) k/uL Monocytes # (0-1.0) k/uL Sodium (137-145) mmol/L Glucose (74-99) mg/dL Hemoglobin A1c 6.6 H (4.0-6.0) % Calcium (8.4-10.2) mg/dL Procalcitonin 0.29 H (0.02-0.09) ng/mL Urine Opiates Screen Detected H (NotDetected) U Benzodiazepines Scrn Detected H (NotDetected) U Marijuana (THC) Screen Detected H (NotDetected) 03/20/19 03/20/19 Range/Units 04:31 04:31 WBC 16.7 H (3.8-10.6) k/uL RDW 16.2 H (11.5-15.5) % Plt Count 131 L (150-450) k/uL Neutrophils # 14.3 H (1.3-7.7) k/uL Monocytes # 1.1 H (0-1.0) k/uL Sodium 135 L (137-145) mmol/L Glucose 126 H (74-99) mg/dL Hemoglobin A1c (4.0-6.0) % Calcium 8.3 L (8.4-10.2) mg/dL Procalcitonin (0.02-0.09) ng/mL Urine Opiates Screen (NotDetected) U Benzodiazepines Scrn (NotDetected) U Marijuana (THC) Screen (NotDetected) Microbiology - Last 24 Hours (Table) 03/19/19 00:12 Urine Culture - Final Urine,Clean Catch 03/19/19 01:32 Blood Culture - Preliminary Blood No Growth after 24 hours Assessment and Plan Plan: 1 acute febrile illness along with Rigors, chills, leukocytosis and mild lactic acidosis. Consider underlying infection/sepsis. The patient was given a combination of Levaquin and vancomycin. Patient could've had a reaction to his Levaquin and the patient was first a combination of Rocephin and vancomycin for now pending further cultures. 2 lower back pain, subsided 3 chest pain radiating to the back, history further workup. Low likelihood for any dissection or aortic pathology. CT angiogram of the chest was essentially negative. No chest pain for now. 4 COPD exacerbation treated recently with a combination of Zithromax and prednisone burst taper an outpatient basis 5 chronic arthritic pain involving the knees bilaterally 6 mild lactic acidosis 8 leukocytosis 9 history of nephrolithiasis Plan All of the cultures are negative for now. Lactic acid normalized his white cell count is improving. ID is on the case. The patient can be chest other than intensive care unit. History of any chest pain. History of any back pain. CAT scan of the chest was negative we'll continue to follow. He will be moved out of the intensive care unit.
--- NOTE | 2019-03-20 23:15 | P.PN ---
Subjective Progress Note Date: 03/20/19 This is a 68-year-old male gives history and plan sudden onset of severe fever and chills as well as lumbar back pain. He does have chronic lumbar back pain and uses a heating pad on a regular basis. He also has bilateral knee pain that is chronic and has had no changes. Patient did developed severe lower back pain along with fever and chills. He was recently treated for COPD exacerbation Z-Justin and prednisone taper which he completed. He was having shortness of breath as well as a pain in his mid chest that shot through to his upper back. The patient was also scheduled for an echocardiogram later this month at cardiology. Patient came into [facility] emergency center for evaluation and found to have temperature max 101, heart rate 111, white count 33.3, platelets of dropped to 145. BUN 26 and creatinine 1.03. Lactic acid 3. Urinalysis leukoesterase large, WBC 10. CT of the abdomen and pelvis did not reveal any acute abnormality. Chest x-ray and repeat chest x-ray showed no acute cardio pulmonary process. Urine culture and blood culture in progress. Patient states that he arrived and was given Valium and Dilaudid for pain and since then he has had no further back pain. He did receive Levaquin and he felt like he had very hot at the time and this is subsequently been discontinued and patient placed on Rocephin and continued on vancomycin. Patient was initially admitted to the [facility] floor and then transferred to the intensive care unit during the night as an A-Team was called. Dr. Garcia was added for intensive care management and he is subsequently ordered a CT and she'll of the thoracic abdominal and pelvic aorta and echocardiogram. Patient currently denies any chest pain with a sensation of feeling was going through to his back. 03/20/2019 the patient is sitting upright is being readied for discharge out of the intensive care unit. He is doing remarkably better. His mentation is clear. He is denying any other significant new complaints. He is denying further fever or chill. Does not have any significant discomfort to the area of erythema the left leg. He does not have good recollection of the events of yesterday. Objective - Vital Signs Vital signs: Vital Signs Temp 98.3 F 03/20/19 15:06 Pulse 64 03/20/19 15:06 Resp 18 03/20/19 15:06 BP 126/67 03/20/19 15:06 Pulse Ox 97 03/20/19 15:06 Intake & Output 03/20/19 03/20/19 03/21/19 06:59 18:59 06:59 Intake Total 934 841 Output Total 375 225 Balance 559 616 Weight 115 kg Intake: IV 934 601 Sodium Chloride 0.9% 1, 600 100 000 ml @ 50 mls/hr IV . Q20H MELANIE Rx#:[id number] Vancomycin 1,750 mg In 334 501 Sodium Chloride 0.9% 500 ml 500 ml @ 167 mls/hr IVPB Q12H MELANIE Rx#: [id number] Oral 240 Output: Urine 375 225 Other: Voiding Method Urinal Urinal # Voids 0 0 - Exam Gen: This is a obese 68-year-old male. He is sitting up on the ICU bed and appears to be comfortable and in no acute distress. HEENT: Head is atraumatic, normocephalic. Pupils equal, round. Sclerae is anicteric. Conjunctiva pink. Extremities of the mouth are moist. No thrush noted. NECK: Supple. No JVD. No lymphadenopathy. No thyromegaly. LUNGS: Few scattered wheeze. No intercostal retractions. HEART: Regular rate and rhythm. No murmur. ABDOMEN: Soft. Bowel sounds are present. No masses. No tenderness. No suprapubic tenderness. EXTREMITIES: No pedal edema. No calf tenderness. Dorsalis pedis +2 bilaterally. No tenderness in the spinal column. Patient is negative for straight leg raise bilaterally.The small area of erythema in the left lower leg above the ankle is not very tender. No petechiae or vesicles, does not ascend but has some minimal lymphadenopathy to left groin is only minimally tender. NEUROLOGICAL: Patient is awake, alert and oriented x3. - Labs CBC & Chem 7: 03/20/19 04:31 03/20/19 04:31 Labs: Abnormal Lab Results - Last 24 Hours (Table) 03/20/19 03/20/19 Range/Units 04:31 04:31 WBC 16.7 H (3.8-10.6) k/uL RDW 16.2 H (11.5-15.5) % Plt Count 131 L (150-450) k/uL Neutrophils # 14.3 H (1.3-7.7) k/uL Monocytes # 1.1 H (0-1.0) k/uL Sodium 135 L (137-145) mmol/L Glucose 126 H (74-99) mg/dL Calcium 8.3 L (8.4-10.2) mg/dL Microbiology - Last 24 Hours (Table) 03/19/19 00:12 Urine Culture - Final Urine,Clean Catch 03/19/19 01:32 Blood Culture - Preliminary Blood No Growth after 24 hours Laboratory Results WBC 16.7 k/uL (3.8-10.6) H 03/20/19 04:31 RBC 4.85 m/uL (4.30-5.90) 03/20/19 04:31 Hgb 14.9 gm/dL (13.0-17.5) 03/20/19 04:31 Hct 44.5 % (39.0-53.0) 03/20/19 04:31 MCV 91.9 fL (80.0-100.0) 03/20/19 04:31 MCH 30.8 pg (25.0-35.0) 03/20/19 04:31 MCHC 33.5 g/dL (31.0-37.0) 03/20/19 04:31 RDW 16.2 % (11.5-15.5) H 03/20/19 04:31 Plt Count 131 k/uL (150-450) L 03/20/19 04:31 Neutrophils % 86 % 03/20/19 04:31 Lymphocytes % 6 % 03/20/19 04:31 Monocytes % 7 % 03/20/19 04:31 Eosinophils % 0 % 03/20/19 04:31 Basophils % 0 % 03/20/19 04:31 Neutrophils # 14.3 k/uL (1.3-7.7) H 03/20/19 04:31 Lymphocytes # 1.1 k/uL (1.0-4.8) 03/20/19 04:31 Monocytes # 1.1 k/uL (0-1.0) H 03/20/19 04:31 Eosinophils # 0.0 k/uL (0-0.7) 03/20/19 04:31 Basophils # 0.0 k/uL (0-0.2) 03/20/19 04:31 Manual Slide Review Performed 03/19/19 05:59 Anisocytosis Slight 03/20/19 04:31 PT 10.2 sec (9.0-12.0) 03/18/19 23:41 INR 0.9 (<1.2) 03/18/19 23:41 APTT 22.3 sec (22.0-30.0) 03/18/19 23:41 Sodium 135 mmol/L (137-145) L 03/20/19 04:31 Potassium 4.3 mmol/L (3.5-5.1) 03/20/19 04:31 Chloride 106 mmol/L (98-107) 03/20/19 04:31 Carbon Dioxide 23 mmol/L (22-30) 03/20/19 04:31 Anion Gap 6 mmol/L 03/20/19 04:31 BUN 16 mg/dL (9-20) 03/20/19 04:31 Creatinine 0.66 mg/dL (0.66-1.25) 03/20/19 04:31 Est GFR (CKD-EPI)AfAm >90 (>60 ml/min/1.73 sqM) 03/20/19 04:31 Est GFR (CKD-EPI)NonAf >90 (>60 ml/min/1.73 sqM) 03/20/19 04:31 Glucose 126 mg/dL (74-99) H 03/20/19 04:31 POC Glucose (mg/dL) 161 mg/dL (75-99) H 03/19/19 06:23 POC Glu [place] ID 03/19/19 06:[address] Glu mg/dL 143 03/19/19 05:59 Hemoglobin A1c 6.6 % (4.0-6.0) H 03/19/19 05:59 Lactic Ac Sepsis Rflx Y 03/19/19 08:38 Plasma Lactic Acid Chris 1.7 mmol/L (0.7-2.0) 03/19/19 12:05 Calcium 8.3 mg/dL (8.4-10.2) L 03/20/19 04:31 Phosphorus 3.7 mg/dL (2.5-4.5) 03/19/19 05:59 Magnesium 1.7 mg/dL (1.6-2.3) 03/20/19 04:31 Total Bilirubin 1.1 mg/dL (0.2-1.3) 03/19/19 05:59 AST 24 U/L (17-59) 03/19/19 05:59 ALT 31 U/L (21-72) 03/19/19 05:59 Alkaline Phosphatase 38 U/L (38-126) 03/19/19 05:59 Troponin I <0.012 ng/mL (0.000-0.034) 03/18/19 23:41 Total Protein 5.6 g/dL (6.3-8.2) L 03/19/19 05:59 Albumin 3.1 g/dL (3.5-5.0) L 03/19/19 05:59 Procalcitonin 0.29 ng/mL (0.02-0.09) H 03/19/19 05:59 Urine Color Yellow 03/19/19 06:30 Urine Appearance Clear (Clear) 03/19/19 06:30 Urine pH 5.5 (5.0-8.0) 03/19/19 06:30 Ur Specific [place] >1.050 (1.001-1.035) H 03/19/19 06:30 Urine Protein Trace (Negative) H 03/19/19 06:30 Urine Glucose (UA) Negative (Negative) 03/19/19 06:30 Urine Ketones Negative (Negative) 03/19/19 06:30 Urine Blood Negative (Negative) 03/19/19 06:30 Urine Nitrite Negative (Negative) 03/19/19 06:30 Urine Bilirubin Negative (Negative) 03/19/19 06:30 Urine Urobilinogen <2.0 mg/dL (<2.0) 03/19/19 06:30 Ur Leukocyte Esterase Small (Negative) H 03/19/19 06:30 Urine RBC 3 /hpf (0-5) 03/19/19 06:30 Urine WBC 4 /hpf (0-5) 03/19/19 06:30 Urine Mucus Rare /hpf (None) H 03/19/19 06:30 Urine Opiates Screen Detected (NotDetected) H 03/19/19 00:15 Ur Oxycodone Screen Not Detected (NotDetected) 03/19/19 00:15 Urine Methadone Screen Not Detected (NotDetected) 03/19/19 00:15 Ur Propoxyphene Screen Not Detected (NotDetected) 03/19/19 00:15 Ur Barbiturates Screen Not Detected (NotDetected) 03/19/19 00:15 U Tricyclic Antidepress Not Detected (NotDetected) 03/19/19 00:15 Ur Phencyclidine Scrn Not Detected (NotDetected) 03/19/19 00:15 Ur Amphetamines Screen Not Detected (NotDetected) 03/19/19 00:15 U Methamphetamines Scrn Not Detected (NotDetected) 03/19/19 00:15 U Benzodiazepines Scrn Detected (NotDetected) H 03/19/19 00:15 Urine Cocaine Screen Not Detected (NotDetected) 03/19/19 00:15 U Marijuana (THC) Screen Detected (NotDetected) H 03/19/19 00:15 Lyme Disease IgG/IgM 0.05 Index 03/20/19 04:31 Lyme Disease Interpret NEGATIVE (NEGATIVE) 03/20/19 04:31 Microbiology 03/19/19 00:12 Urine,Clean Catch Urine Culture - Final 03/19/19 01:32 Blood Blood Culture - Preliminary No Growth after 24 hours Assessment and Plan (1) Fever Narrative/Plan: 03/20/2018 the patient is feeling considerably better. Mentation is improved from the difficulties of yesterday. Fever is resolved. Leukocytosis is improving. Still has a small area of erythema in the left leg, is only obvious site of abnormality at this time. Early cellulitis with some lymphangitis could be the etiology for sepsis at admission and is responding to therapy. Cultures are in process. Lyme and Rickettsia titers are pending. Status: Acute Code(s): R50.9 - FEVER, UNSPECIFIED SNOMED Code(s): 251826513 (2) Sepsis Narrative/Plan: This 68-year-old male has noted presented hospital with fever chills and feeling very poorly. He is known history of chronic back pain but also had severe lumbar back pain and presented. As noted he was recently seen in the outpatient setting for exacerbation of COPD was treated with azithromycin and prednisone. This Saturday completed by the time he presented to the emergency center. As noted there is no difficulties with temperature 101, count is 33.3 and lactic acid was elevated at 3. His related that he was given a dose of levofloxacin which caused him to feel very poorly is now being treated with Rocephin and vancomycin. The patient developed significant discomfort that seemed to migrate and constantly was a concern about the potential for an aneurysm and angiography is now pending. He is noted to be a significant marijuana user and has developed some agitation and now with some benzodiazepine use, sleeping quite nicely. He's had no further 101 fevers since actually shortly after his arrival. It is noted that he developed this rash to the medial aspect of the right ankle. He did not complain much about it but it was noticed. They used to live in the [place] area but now have [place] out to the country in [place]. It appears that he admission the patient has evidence of sepsis is noted by the leukocytosis fever chills and elevated lactic acid. The source of sepsis remains quite indistinct. His fevers steadily improved and he has had some agitation that has developed and has responded well to treatment for withdrawal. [place] will assess for Lyme disease, increase the Rocephin to 2 g IV piggyback every 12 hours pending further data. Continue vancomycin therapy. He has not traveled but he does have a febrile illness and has had some alteration of his platelets and has a small rash on the ankle and will consider other tickborne illnesses and ask for Rickettsia titers. The rash the ankle is rather nondescript and does not appear to be enough extent to re sult in the current sepsis. At presentation he had very severe back pain that completely resolved after his arrival to hospital. Further imaging studies have been requested to evaluate for potential aneurysm given the somewhat atypical abdominal discomforts and migration that occurred. As noted the patient's fever has completely resolved and will be monitored. If fever recurs we'll need to consider multiple other areas of sepsis. 03/20/2018 the patient is feeling considerably better. Mentation is improved from the difficulties of yesterday. Fever is resolved. Leukocytosis is improving. Still has a small area of erythema in the left leg, is only obvious site of abnormality at this time. Early cellulitis with some lymphangitis could be the etiology for sepsis at admission and is responding to therapy. Cultures are in process. Lyme and Rickettsia titers are pending. Status: Acute Code(s): A41.9 - SEPSIS, UNSPECIFIED ORGANISM SNOMED Code(s): 15696158
[2019-03-21] MEDS ORDERED: VANCOMYCIN TROUGH DUE 1 EACH MISC MISCELLANE ONE (14:00)
--- NOTE | 2019-03-31 11:44 | P.DS ---
Providers Date of admission: 03/19/19 03:17 Attending physician: Gricelda Layton Consults: 03/19/19 02:41 Consult Physician Routine Consulting Provider: Kenny Mcfadden Consult Reason/Comments: Fever; Sepsis Do you want consulting provider notified?: Yes 03/19/19 06:07 Consult Physician Stat Consulting Provider: Diaz Garcia Consult Reason/Comments: icu management Do you want consulting provider notified?: Already Contacted Primary care physician: Lukasz Milton Hospital Course: please note the pt was not discharged but he singed himself out by signing leaving AMA . Diagnoses: cellulitis of the left lower leg Systemic inflammatory response with tachypnea and leukocytosis and fever sepsis secondary to above Mild acute COPD exacerbation. Elevated lactic acid, resolved Leukocytosis History of kidney stone Obesity Hospital course: This is a pleasant 68 years old male with past medical history of COPD, osteoarthritis, kidney stones and obesity. Patient presents with not feeling well for one day duration with lethargy, as per patient and at bedside patient started having chills and filling called yesterday, he went to take a shower followed by severe back pain is unusual for him, and his pain is resolved later, also he had some mild frontal headache that is resolved later. Patient denies dyspnea, chest pain or coughing. pt initially was admitted to the ICU for sepsis/sever sepsis of unknown source, with careful examination pt had pinkish discoloration on his left leg with mild tenderness ands warmth, however within one day and with resuscitation his general clinical condition improved significantly , he was more awake and alert back to his baseline , but his left leg became more red and tender and becoming obvious it is the most likely source of infection . pt vital signs remains stable with no more fever, his wbc is significantly improved down to 16.7K. and he was transferred out of the ICU to the general medical floor. later on pt wanted to leave AMA. he talked to me after asking his to leave stating their is a circumstance in the family ( his sister) and he wanted to leave AMA. pt is counseled against signing leaving AMA, risks including but not limited to losing his leg, paralysis, loss of function or permanent organ damage and/or are explained for the pt and she verbalized understanding but she still wants to sign AMA. i told pt is there anything i can do to stop her from signing AMA and she said "NO" I counseled pt if she changes his mind or if he develops worsening signs or symptoms then to call 911 and come to emergency room . also i instructed pt to f/u with his pcp and as soon as possible. pt has capacity to make medical decision based upon my evaluation is aware about his decision to leave AMA and I explained to her the risk too upon pt approval. physical exam Gen.: Patient alert awake and oriented X 3, NOT IN DISTRESS CVS: s1-s2, RRR, no murmur CHEST:bilateral CTA, no wheezing or crepitation Abdomen: Soft, no tenderness, no distention, positive bowel sounds Extremities: No leg edema or induration. left leg red , swollen and tender (about 3-4 inches in width ) and all around the lower left leg time spent : more than 35 min including counseling Patient Condition at Discharge: Serious Plan - Discharge Summary Discharge Rx Participant: Yes New Discharge Prescriptions: No Action Aspirin EC [Ecotrin Low Dose] 81 mg PO DAILY Albuterol Nebulized [Ventolin Nebulized] 2.5 mg INHALATION RT-Q6H PRN PRN Reason: Shortness Of Breath Albuterol Inhaler [Ventolin Hfa Inhaler] 2 puff INHALATION RT-Q6H PRN PRN Reason: Shortness Of Breath Meloxicam 15 mg PO DAILY Discharge Medication List Albuterol Inhaler [Ventolin Hfa Inhaler] 2 puff INHALATION RT-Q6H PRN 03/19/19 [History] Albuterol Nebulized [Ventolin Nebulized] 2.5 mg INHALATION RT-Q6H PRN 03/19/19 [History] Aspirin EC [Ecotrin Low Dose] 81 mg PO DAILY 03/19/19 [History] Meloxicam 15 mg PO DAILY 03/19/19 [History] Follow up Appointment(s)/Referral(s): Lukasz Milton DO [Primary Care Provider] - 1-2 days Discharge Disposition: Left Against Medical Advice
== END 2019-03-20 16:17 | disposition left against medical advice (07) | DRG 872 ==
LOC: EC 23:18 → EDBD 23:18 → 4SSUR 03-19 03:17 → 2SICU 03-19 06:26 → 4MS4W 03-20 14:45
PROVIDERS: ADMIT Hospitalist; ATTEND Hospitalist
DX: A41.9 Sepsis, unspecified organism (principal); L03.116 Cellulitis of left lower limb; J44.1 Chronic obstructive pulmonary disease with (acute) exacerbation; R06.82 Tachypnea, not elsewhere classified; E66.9 Obesity, unspecified; M54.5 Low back pain; G89.29 Other chronic pain; Z68.39 Body mass index [BMI] 39.0-39.9, adult; Z90.49 Acquired absence of other specified parts of digestive tract; Z98.890 Other specified postprocedural states; Z87.891 Personal history of nicotine dependence; Z87.442 Personal history of urinary calculi; Z82.49 Family history of ischemic heart disease and other diseases of the circulatory system; Z79.82 Long term (current) use of aspirin; Z79.1 Long term (current) use of non-steroidal anti-inflammatories (NSAID)
CPT/HCPCS: 36415; 71045; 71046; 71275; 74177; 80048; 80053; 80306; 81001; 83036; 83605; 83735; 84100; 84145; 84484; 85025; 85610; 85730; 86618; 86757; 87040; 87086; 93005; 93306; 96361; 96374; 96375; 96376; 99285

== ENCOUNTER → 2023-11-22 | Outpatient (CLI) | payer MEDICARE, OTHER ==
--- NOTE | 2023-11-22 13:57 | CT ---
EXAMINATION TYPE: CT abdomen wo con DATE OF EXAM: 11/22/2023 COMPARISON: 03/19/2019 HISTORY: Left side abdomen pain, swelling CT DLP: 623 mGycm Automated exposure control for dose reduction was used. TECHNIQUE: Helical acquisition of images was performed from the lung bases through the top of iliac crest to include entire abdomen. CONTRAST: Performed with Oral Contrast and without IV contrast. FINDINGS: The lungs are clear. There is surgical absence of the gallbladder. There is no biliary ductal dilatation. There is no organomegaly of the liver, pancreas, spleen or adrenal glands. There are no renal calcifications or hydronephrosis. The caliber of the abdominal aorta is normal and there is no retroperitoneal adenopathy or hemorrhage . The bowel loops are normal in caliber is no evidence of obstruction. No inflammatory changes are iden tified in the mesentery and there is no free intraperitoneal air or fluid. The osseous structures and soft tissues are unremarkable. IMPRESSION: No significant abnormality seen.
== END | disposition home or self-care (01) ==
LOC: RADCTMAIN 12:25
PROVIDERS: ATTEND Family Medicine
DX: R19.04 Left lower quadrant abdominal swelling, mass and lump (principal); R10.9 Unspecified abdominal pain; Z90.49 Acquired absence of other specified parts of digestive tract
CPT/HCPCS: 74150